=== PATIENT | male | born 1995 | race Caucasian/White ===

== ENCOUNTER 2017-08-13 19:56 | Emergency (ER) | payer MEDICAID, SELFPAY ==
[2017-08-13 19:57] VITALS: BP 153/77; PULSE 63; RESP 19; TEMP 36.7; O2SAT 98; BMI 34.0
--- NOTE | 2017-08-13 20:49 | EKG12_ITS ---
Test Reason : DIZZINESS Blood Pressure : / mmHG Vent. Rate : 065 BPM Atrial Rate : 065 BPM P-R Int : 152 ms QRS Dur : 088 ms QT Int : 392 ms P-R-T Axes : 027 018 034 degrees QTc Int : 407 ms Sinus rhythm with marked sinus arrhythmia Otherwise normal ECG Confirmed by DANIKA GEORGE, FRANKIE ([id number]), newspaper photojournalist WALT BREWER ([id number]) on 08/18/2017 2:22:39 PM Referred By: RYAN Confirmed By:FRANKIE GARNICA MD
[2017-08-13] MEDS: 0.9% Normal Saline 1,000 ML 50 ML IV (21:10)
[2017-08-13 21:36] LABS: Anion Gap 6 (5-15); BUN 12 mg/dL (7-18); BUN/Creat Ratio 9.7 RATIO (10-20); Calcium,Total 8.9 mg/dL (8.5-10.1); Chloride 108 mmol/L (98-107); Creatinine, Serum 1.24 mg/dL (0.70-1.30); EST Glomerular Filtration Rate 79 mL/min (>60); Est Glom Filt Rate - Afr Amer 95 mL/min (>60); Estimated Creatinine Clearance 98.12 ml/min; Glucose 79 mg/dL (74-106); Potassium 3.5 mmol/L (3.5-5.1); Sodium Level 144 mmol/L (136-145)
[2017-08-13 21:36] LABS: Bedside Glucose 107 mg/dL (70-110)
[2017-08-13 21:40] LABS: Absolute Lymphocyte Count 2.25 X10^3/ul (0.83-4.51); Absolute Neutrophil Count 3.1 X10^3/uL (2.0-7.7); Basophil# 0.01 X10^3/uL; Basophil% 0.2 % (0-1); Eosinophils% 1.7 % (0-5); Hematocrit 44.5 % (40-54); Hemoglobin 14.6 g/dl (13.0-16.5); Lymphocyte # 2.25 X10^3/ul (4.0); Lymphocyte % 37.7 % (19-41); Mean Corp Hgb Conc 32.8 g/gl (32-36); Mean Corpuscular Volume 88.3 fL (80-94); Mean Platelet Vol. 10.2 fl (6.2-12.0); Monocyte# 0.55 X10^3/uL; Monocyte% 9.2 % (0-10); Neutrophil # 3.05 X10^3/uL (2.7-7.7); Platelet Count 234 K/mm3 (150-450); RBC Distribution Width CV 13.1 % (11.6-14.6); RBC Distribution Width SD 42.2 fl (35.1-43.9); Red Blood Count 5.04 M/mm3 (4.6-6.2)
[2017-08-13 21:41] LABS: POSITIVE COUNT NO; POSITIVE DIFFERENTIAL NO; POSITIVE MORPHOLOGY NO
[2017-08-13 21:44] LABS: International Normalized Ratio 0.9; Prothrombin Time (Protime)PT. 12.6 SECONDS (11.7-14.9)
[2017-08-13 21:45] LABS: Partial Thromboplast Time 31.4 Seconds (24.1-36.2)
[2017-08-13 22:19] VITALS: BP 145/69; PULSE 79; RESP 16; O2SAT 100
[2017-08-13] MEDS: Ketorolac 30 MG/ML Syringe IV (22:38)
[2017-08-13] MEDS: 0.9% Normal Saline 1,000 ML 999 ML IV (22:38)
[2017-08-13 22:41] VITALS: BP 145/69; BP 148/76; BP 162/76; PULSE 69; PULSE 76; PULSE 94
--- NOTE | 2017-08-13 23:23 | ED.DCSUM_ITS ---
- ER Visit Summary Date of Service: 08/13/17 Chief Complaint: Headache and lightheaded History of Present Illness: The patient is a 21 M who presents with a headache. It began this morning. It gradually worsened throughout the day. He has a history of prior similar headaches. No fall or injury. Today while getting ready to get a shower he began to feel lightheaded and dizzy. He felt as if he may lose consciousness. He did not have a syncopal episode. He denies any chest pain or shortness of breath. He does have a history of prior similar episodes of dizziness as well and has had a normal Holter monitor. Physical Examination: Afebrile vitals are stable Heart regular Lungs clear Abdomen soft Alert and oriented with no focal or lateralizing neurological deficits Test Results: EKG shows sinus arrhythmia at a rate of 65. Orthostatic vital signs negative. CBC BMP INR unremarkable and PTT was normal on arrival. Emergency Department Course and Treatment: She was treated with IV Toradol with complete resolution of his headache. He has no complaints on reevaluation. He was advised to follow-up with his primary care provider and was discharged home. Treatment Plan: [] Disposition: Discharge Impression: Headache Near syncope This note was generated with [employer] dictation software. It may contain incorrect words, spelling, and punctuation that were not noted in review of the chart prior to signing ED Disposition - Plan for ED Patient: Chief Complaint: Dizziness Referrals: Wesley Dorsey DO [Primary Care Provider] -
--- NOTE | 2017-08-13 23:23 | ED.DEP ---
ED Disposition - Plan for ED Patient: Chief Complaint: Dizziness Instructions: ED Near Syncope Unkn, ED Cephalgia Unspecified Referrals: Wesley Dorsey DO [Primary Care Provider] -
[2017-08-13 23:51] VITALS: BP 141/74; PULSE 60; RESP 16; O2SAT 100
== END 2017-08-13 23:56 | disposition home or self-care (01) ==
LOC: ED 22:35
PROVIDERS: Emergency Provider Emergency Medicine; Family Provider Family Medicine; PCP Family Medicine
DX: R51 Headache (principal); R55 Syncope and collapse; Z72.0 Tobacco use
CPT/HCPCS: 80048; 82962; 85025; 85610; 85730; 93005; 96361; 96374; 99285; J7030; A4216

== ENCOUNTER 2019-05-15 06:22 | Emergency (ER) | payer OTHER, SELFPAY ==
[2019-05-15 06:22] VITALS: BP 162/96; PULSE 101; RESP 16; TEMP 36.3; O2SAT 96; BMI 35.4
[2019-05-15] MEDS: dexAMETHasone 4 MG Tablet PO (06:30)
--- NOTE | 2019-05-15 06:43 | ED.VISSUMM ---
- ER Visit Summary Date of Service: 05/15/19 Chief Complaint: Sore throat History of Present Illness: The patient is a 23 M presenting with sore throat. Patient states he has a mild pain in the back of his throat. He is able to swallow. He states it feels funny in the back of his throat. He denies difficulty swallowing. Denies fever. He states he woke up with these symptoms. Denies other complaints. Physical Examination: Vitals are stable. Patient is afebrile. Alert no acute distress. HEENT exam uvula is midline and swollen. No pharyngeal exudate. Neck is supple. No meningismus Lungs are clear and equal bilaterally. Heart is regular rate and rhythm. Extremities are unremarkable. Skin is warm and dry. No rash No focal neurologic deficit. Remainder of exam is unremarkable. Emergency Department Course and Treatment: Patient was given Decadron. Rapid strep negative. On reevaluation, he is resting comfortably. He is able to swallow without difficulty. He is given a prescription for amoxicillin. Advised signs and symptoms for which to return to the ED. Advised to follow up with primary care physician. Disposition: Discharge home Impression: Uvulitis This note was generated with [employer] dictation software. It may contain incorrect words, spelling, and punctuation that were not noted in review of the chart prior to signing ED Disposition - Plan for ED Patient: Instructions: Uvulitis Prescriptions: Amoxicillin 500 mg PO BID #14 tab Transmission Status: Received by [facility] [place] [address] Referrals: Wesley Dorsey DO [Primary Care Provider] -
--- NOTE | 2019-05-15 07:03 | DCINST.ED_ITS ---
ED Disposition - Plan for ED Patient: Instructions: Uvulitis Prescriptions: Amoxicillin 500 mg PO BID #14 tab Transmission Status: Pending to [facility] Referrals: Wesely Dorsey DO [Primary Care Provider] -
--- NOTE | 2019-05-15 07:03 | ED.DEP ---
ED Disposition - Plan for ED Patient: Instructions: Uvulitis Prescriptions: Amoxicillin 500 mg PO BID #14 tab Transmission Status: Pending to [facility] Referrals: Wesley Dorsey DO [Primary Care Provider] -
[2019-05-15] MEDS: AMOXICILLIN 500 MG CAPSULE PO (07:08)
[2019-05-15 07:21] VITALS: RESP 18
== END 2019-05-15 07:23 | disposition home or self-care (01) ==
PROVIDERS: Emergency Provider Emergency Medicine; Family Provider Family Medicine; PCP Family Medicine
DX: K12.2 Cellulitis and abscess of mouth (principal); Z72.0 Tobacco use
CPT/HCPCS: 87880; 99283

== ENCOUNTER 2021-03-05 09:13 | Emergency (ER) | payer BC, SELFPAY ==
[2021-03-05 09:14] VITALS: BP 162/92; PULSE 85; RESP 16; TEMP 36.9; O2SAT 100; BMI 37.5
[2021-03-05 09:21] VITALS: O2SAT 100
--- NOTE | 2021-03-05 09:58 | EKG12_ITS ---
Test Reason : COUGH Blood Pressure : / mmHG Vent. Rate : 093 BPM Atrial Rate : 093 BPM P-R Int : 144 ms QRS Dur : 094 ms QT Int : 352 ms P-R-T Axes : 034 011 030 degrees QTc Int : 437 ms Normal sinus rhythm Normal ECG Confirmed by FREDERIC GEORGE, STEPHANIE ([id number]), make up editor ARMOND SOLITARIO ([id number]) on 03/07/2021 11:22:33 AM Referred By: BENNY Confirmed By:STEPHANIE DE LA GARZA MD
--- NOTE | 2021-03-05 09:58 | EX.ED.VIS.UR ---
HPI HPI - URI History of Present Illness Chief Complaint: Cough Informant: patient Onset/Context/Timing Onset: Days (6) Context: Gradual Onset Timing: Continuous Quality: Aching Location: Chest Narrative Narrative: Patient presents with cough and congestion that has been getting worse over the past 6 days. Patient states she started having pain in his chest with coughing. Patient states it is a dull ache but is sharp whenever he coughs. Patient also admits to some nasal congestion and rhinorrhea. Patient also admits to some sinus pressure. Patient states he is coughing up some green sputum. Patient denies any fevers or chills. Patient states that he has had 3 Covid tests which were all negative. ROS ROS ED Constitutional Constitutional ED: Denies chills or fever(s) Eyes Eyes: Denies blurry vision or change in vision ENT ENT ED: Reports rhinorrhea; Denies sore throat Cardiovascular Cardiovascular: Reports chest pain; Denies palpitations Respiratory/Chest Respiratory/Chest: Reports cough; Denies dyspnea Gastrointestinal Gastrointestinal: Denies nausea or vomiting Genitourinary Genitourinary ED: Denies dysuria or hematuria Musculoskeletal Musculoskeletal: Reports back pain; Denies neck pain Integumentary Denies abscess or rash Neurologic Neurologic: Denies headache(s) or weakness Allergic/Immunologic Allergic/Immunologic ED: Denies mouth swelling or urticaria PFSH PFS Medical History (Updated 03/05/21 @ 11:[address] Zach Ferreira DO) GERD (gastroesophageal reflux disease) Medical History no medical history Home Medications amoxicillin 500 mg PO BID #14 tab 05/15/19 [Rx Last Taken Unknown] Allergy/AdvReac Type Severity Reaction Status Date / Time No Known Allergies Allergy Verified 03/05/21 09:17 Surgical History no surgical history no surgical history Social History Smoking Status: Never smoker EXAM Physical Exam Const Vital Signs: 03/05/21 09:14 03/05/21 09:21 03/05/21 10:21 Temperature 98.4 F Temperature Source Temporal Pulse Rate 85 104 H Respiratory Rate 16 21 H Respiratory Effort Normal Non-Labored Respiratory Depth Normal Respiratory Pattern Normal Blood Pressure 162/92 H Blood Pressure Mean 115 Pulse Ox 100 Oxygen Delivery Method Room Air Room Air Positive well nourished and well developed General Appearance ED: well developed HEENT Reports moist mucous membranes Neck supple and no JVD Resp normal respiratory effort and clear to auscultation bilaterally Auscultation: diminished lung sounds diffuse Cardio regular rate, regular rhythm and no murmurs Rate: regular rate Rhythm: regular rhythm GI normal to inspection, nondistended, normoactive bowel sounds, non-tender and non-distended Palpation: soft Extremity normal to inspection General Extremety ED: Negative for edema or tenderness General Extremity: Negative for edema Neuro oriented x3, CN's II-XII intact bilaterally and no sensory deficits noted Sensorium / Orientation: alert Motor Exam: strength 5/5 throughout Psych mental status grossly normal Skin no rashes or lesions noted MDM MDM MDM Narrative Medical decision making narrative: Patient was given a DuoNeb aerosol here. Portable 1 view chest x-ray was obtained. On my interpretation, lung tamayo are clear. There is normal cardiac silhouette. Bony thorax is normal. There is no acute process noted. Radiologist also interpreted the x-ray and agrees. EKG was obtained. On my interpretation, it showed a normal sinus rhythm with a rate of 93. MA interval, QRS interval, and QTc intervals were all normal. Josephine was normal. There are no acute ST or T wave changes. CBC and comprehensive metabolic profile were obtained and were within normal limits. Patient was advised of his findings. Patient was advised that this is a viral upper respiratory infection. Patient was instructed drink plenty of fluids. Patient was instructed to take Tylenol or ibuprofen as needed for aches or fevers. Patient was instructed to follow-up with his primary care physician in 5 to 7 days. Patient understood and was agreeable with the plan. All questions were answered. Lab Data Attestation: I reviewed the patient's lab results. Labs: Laboratory Results - last 24 hr 03/05/21 03/05/21 10:05 10:05 WBC 8.9 RBC 5.20 Hgb 15.1 Hct 45.3 MCV 87.1 MCH 29.0 MCHC 33.3 RDW Std Deviation 38.5 RDW Coeff of Sandra 12.1 Plt Count 275 MPV 10.0 Immature Gran % (Auto) 0.300 Neut % (Auto) 76.6 H Lymph % (Auto) 13.4 L [place] % (Auto) 8.4 Eos % (Auto) 1.0 Baso % (Auto) 0.3 Absolute Neuts (auto) 6.8 Absolute Lymphs (auto) 1.19 Nucleated RBC % 0 Sodium 140 Potassium 3.8 Chloride 108 H Carbon Dioxide 26.0 Anion Gap 6 BUN 12 Creatinine 1.10 Estim Creat Clear Calc 103.55 Est GFR (MDRD) Af Amer 106 Est GFR (MDRD) Non-Af 87 BUN/Creatinine Ratio 10.9 Glucose 92 Calcium 9.3 Total Bilirubin 0.60 AST 13 L ALT 19 Alkaline Phosphatase 101 Total Protein 7.9 Albumin 3.8 Globulin 4.1 Albumin/Globulin Ratio 0.9 Radiography Diagnostic Testing: Radiology Impression Chest X-Ray 03/05/21 10:10 IMPRESSION: Hyperinflation. The lungs are clear. Electronically Signed: Sandeep Padilla MD at 10:24 EDT , Service support , EKG Initial EKG: Attestation: I personally reviewed and interpreted this EKG as follows: Interpretation: Sinus Rhythm (93) and No Acute Injury Pattern Discharge Plan Triage Chief Complaint: Cough ED Provider: Zach Ferreira Dx/Rx/DC Orders Clinical Impression: Viral upper respiratory tract infection Instructions: ED URI, Viral, No Abx (Adult) Prescriptions: No Action amoxicillin 500 MG tablet 500 mg PO BID Qty: 14 RF: 0 Stand Alone Forms: ED Work / School Excuse Primary Care Provider: Adriel Hunt Referrals: Adriel Hunt DO [Primary Care Provider] - 5-7 Days Disposition Disposition: Home, Self Care
--- NOTE | 2021-03-05 10:10 | RAD_ITS ---
STUDY: X-RAY CHEST REASON FOR EXAM: Male, 25 years old. 3 week history of cough. TECHNIQUE: Single AP portable view of the chest. COMPARISON: None. FINDINGS: EKG electrodes are seen. Hyperinflation. The lungs are clear. There is no demonstrated pleural abnormality. Normal size heart. Normal mediastinum and ashleigh. Normal visualized pulmonary arteries. Normal visualized aortic arch and descending thoracic aorta. Normal visualized thoracic spine. Normal visualized ribs, clavicles, and shoulders. There is no demonstrated abnormality of the visualized soft tissue structures of the upper abdomen. RAD/Chest 1 View (Portable) IMPRESSION: Hyperinflation. The lungs are clear. Electronically Signed: Sandeep Padilla MD at 10:24 EDT , Service support ,
[2021-03-05 10:12] LABS: Absolute Lymphocyte Count 1.19 X10^3/uL (0.83-4.51); Absolute Neutrophil Count 6.8 X10^3/uL (2.0-7.7); Basophil# 0.03 X10^3/uL; Basophil% 0.3 % (0-1); Eosinophil# 0.09 X10^3/uL; Hematocrit 45.3 % (40-54); Hemoglobin 15.1 g/dL (13.0-16.5); Lymphocyte # 1.19 X10^3/ul (0.83-4.51); Lymphocyte % 13.4 % (19-41); Mean Corp Hgb Conc 33.3 g/dL (32-36); Mean Corpuscular Volume 87.1 fL (80-94); Monocyte# 0.75 X10^3/uL; Monocyte% 8.4 % (0-10); NRBC Flagged by Analyzer 0 % (0-5); Neutrophil # 6.79 X10^3/uL (2.7-7.7); Neutrophil % 76.6 % (47-70); Platelet Count 275 K/mm3 (150-450); RBC Distribution Width CV 12.1 % (11.6-14.6); RBC Distribution Width SD 38.5 fl (35.1-43.9); White Blood Count 8.9 K/mm3 (4.4-11.0)
[2021-03-05 10:21] VITALS: PULSE 104; RESP 21
[2021-03-05] MEDS: Ipratropium/Albuterol Sulfate 3 ML AMPUL.NEB INHALATION (10:21)
[2021-03-05 10:28] LABS: ALB/GLOB Ratio 0.9 RATIO (0.9-2.4); AST(SGOT) 13 U/L (15-37); Alanine Aminotransfer ALT/SGPT 19 U/L (16-61); Albumin, Serum 3.8 g/dL (3.2-5.0); Alkaline Phosphatase 101 U/L (45-117); Anion Gap 6 (5-15); BUN 12 mg/dL (7-18); BUN/Creat Ratio 10.9 RATIO (10-20); Calcium,Total 9.3 mg/dL (8.5-10.1); Chloride 108 mmol/L (98-107); EST Glomerular Filtration Rate 87 mL/min (>60); Est Glom Filt Rate - Afr Amer 106 mL/min (>60); Estimated Creatinine Clearance 103.55 ml/min; Globulin 4.1 g/dL (2.2-4.2); Glucose 92 mg/dL (74-106); Potassium 3.8 mmol/L (3.5-5.1); Protein, Total 7.9 g/dL (6.4-8.2); Sodium Level 140 mmol/L (136-145)
[2021-03-05 11:29] VITALS: BP 141/90; PULSE 79; RESP 18; O2SAT 96
== END 2021-03-05 11:30 | disposition home or self-care (01) ==
PROVIDERS: Emergency Provider Emergency Medicine; PCP Family Medicine
DX: J06.9 Acute upper respiratory infection, unspecified (principal); K21.9 Gastro-esophageal reflux disease without esophagitis
CPT/HCPCS: 71045; 80053; 85025; 93005; 94640; 99283; A4216

== ENCOUNTER → 2022-07-23 | Outpatient (CLI) | payer BC, SELFPAY ==
[2022-07-23 16:54] LABS: Absolute Lymphocyte Count 1.79 X10^3/uL (0.83-4.51); Absolute Neutrophil Count 5.7 X10^3/uL (2.0-7.7); Basophil# 0.03 X10^3/uL; Basophil% 0.4 % (0-1); Eosinophil# 0.04 X10^3/uL; Eosinophils% 0.5 % (0-5); Hematocrit 46.2 % (40-54); Hemoglobin 15.5 g/dL (13.0-16.5); Lymphocyte # 1.79 X10^3/ul (0.83-4.51); Lymphocyte % 22.1 % (19-41); Mean Corp Hgb Conc 33.5 g/dL (32-36); Mean Corpuscular Hgb 28.7 pg (27.0-32.0); Mean Corpuscular Volume 85.4 fL (80-94); Mean Platelet Vol. 10.4 fl (6.2-12.0); Monocyte# 0.52 X10^3/uL; Monocyte% 6.4 % (0-10); NRBC Flagged by Analyzer 0 % (0-5); Neutrophil % 70.4 % (47-70); Platelet Count 286 K/mm3 (150-450); RBC Distribution Width CV 13.2 % (11.6-14.6); RBC Distribution Width SD 40.4 fl (35.1-43.9); Red Blood Count 5.41 M/mm3 (4.6-6.2); White Blood Count 8.1 K/mm3 (4.4-11.0)
[2022-07-23 17:56] LABS: ALB/GLOB Ratio 1.3 RATIO (0.9-2.4); AST(SGOT) 18 U/L (15-37); Alanine Aminotransfer ALT/SGPT 24 U/L (16-61); Albumin, Serum 4.5 g/dL (3.2-5.0); Alkaline Phosphatase 96 U/L (45-117); Anion Gap 6 (5-15); BUN 14 mg/dL (7-18); BUN/Creat Ratio 10.2 RATIO (10-20); CRP < 2.90 mg/L (0.0-3.0); Calcium,Total 9.6 mg/dL (8.5-10.1); Chloride 107 mmol/L (98-107); Creatinine, Serum 1.37 mg/dL (0.70-1.30); EST Glomerular Filtration Rate 67 mL/min (>60); Est Glom Filt Rate - Afr Amer 81 mL/min (>60); Globulin 3.4 g/dL (2.2-4.2); Glucose 88 mg/dL (74-106); Lipase 365 U/L (73-393); Potassium 3.6 mmol/L (3.5-5.1); Protein, Total 7.9 g/dL (6.4-8.2); Sodium Level 141 mmol/L (136-145)
[2022-07-23 19:33] LABS: Erythrocyte Sedimentation Rate 4 mm/hr (0-20)
[2022-07-25 15:08] LABS: Anti-Centromere B Ab <0.2 AI (0.0-0.9); Anti-Chromatin <0.2 AI (0.0-0.9); Anti-Jo <0.2 AI (0.0-0.9); Anti-Scleroderma-70 AB <0.2 AI (0.0-0.9); RNP Ab <0.2 AI (0.0-0.9); SJOGREN'S Anti-SS-A test < 0.2 AI (0.0-0.9); SJOGREN'S Anti-SS-B test < 0.2 AI (0.0-0.9); Smith Ab <0.2 AI (0.0-0.9)
[2022-07-26 16:09] LABS: Cytoplasmic Ab (C-ANCA) <1:20 titer (Neg:<1:20); Endomysial Antibody IgA Negative (Negative); Immunoglobulin A 62 mg/dL (90-386)
[2022-07-26 17:27] LABS: Anti-Mitochondrial AB <20.0 Units (0.0-20.0); Anti-dsDNA Ab 5 IU/mL (0-9)
[2022-07-26 19:19] LABS: Anti-Smooth Muscle ABS 10 Units (0-19); Gastrin, Serum 61 pg/mL (0-115); Perinuclear Ab (P-ANCA) <1:20 titer (Neg:<1:20); t-Transglutaminase IgA <2 U/mL (0-3)
== END | disposition home or self-care (01) ==
LOC: LAB 16:00
PROVIDERS: PCP Family Medicine; Visit Provider Nurse Practitioner Adult Health
DX: R10.10 Upper abdominal pain, unspecified (principal); K21.9 Gastro-esophageal reflux disease without esophagitis
CPT/HCPCS: 36415; 80053; 82784; 82941; 83516; 83690; 85025; 85652; 86140; 86225; 86235; 86255; 86256

== ENCOUNTER → 2023-01-10 | Outpatient (CLI) | payer BC, SELFPAY ==
--- NOTE | 2023-01-10 09:36 | NM_ITS ---
CLINICAL: 27-year-old female with history of postprandial abdominal pain. RADIONUCLIDE HEPATOBILIARY SCINTIGRAPHY COMPARISON: None available FINDINGS: Following the intravenous administration of 5.5 mCi of 99m Tc Mebrofenin, hepatobiliary images reveal: 1. Relatively prompt and homogeneous radiopharmaceutical concentration is noted by a normal sized liver. No parenchymal defects are identified. 2. Gallbladder activity is identified at 10 minutes post radiopharmaceutical administration. 3. Small intestinal tract is not visualized during 60 minutes of pre-CCK sequential imaging. Small bowel activity is identified following the administration of cholecystokinin. 4. Washout of the radiopharmaceutical by the hepatic parenchyma appears qualitatively normal. Cholecystokinin (0.02 ug/kg) was administered intravenously over a 30-minute period. The post CCK gallbladder ejection fraction calculated at 20 minutes following Cholecystokinin administration was noted to be 50.0 % (normal greater than 35%). During 30 minutes of post CCK imaging, there is no scintigraphic evidence of reflux of the radiotracer into the common hepatic duct or refilling of the gallbladder. NM/Hepatobilliary Img w/Pharm Int IMPRESSION: 1. NORMAL 99m Tc Mebrofenin hepatobiliary imaging examination with Cholecystokinin. A. A gallbladder ejection fraction calculated to be greater than 35% following the administration of Cholecystokinin makes the probability of functional hepatobiliary disease (gallbladder and/or sphincter of Oddi dyskinesia) and/or organic hepatobiliary disease (chronic acalculous cholecystitis and/or cystic duct syndrome) to be low. (Eric Rodas et al, Journal of Nuclear Medicine 32:1695, 1991). Electronically Signed: Yon Sharpe, at 10:21 EDT ,
== END | disposition home or self-care (01) ==
PROVIDERS: PCP Family Medicine
DX: R10.10 Upper abdominal pain, unspecified (principal); R19.7 Diarrhea, unspecified
CPT/HCPCS: 78227; A9537; J2805

== ENCOUNTER 2024-05-18 07:36 | Emergency (ER) | payer OTHER, SELFPAY ==
[2024-05-18 07:36] VITALS: BP 148/103; PULSE 82; RESP 14; TEMP 36.2; O2SAT 100; BMI 33.2
--- NOTE | 2024-05-18 07:42 | EX.ED.GENINJ ---
HPI History of Present Illness Chief Complaint: Laceration Narrative Narrative: Patient is a 28-year-old male with past medical history of GERD, DARSHANA who presented to the emergency department the chief complaint of cut to his left thumb. He states that he was cutting sourdough bread this morning when the knife went through the bread and cut his left thumb. He states that his last tetanus shot was approximately 10 years ago and states that this will need updated today. Patient otherwise has no further complaints at this point time. [facility] Medical History Elevated lipase LUQ abdominal tenderness Abdominal pain DARSHANA (obstructive sleep apnea) Allergic rhinitis GERD (gastroesophageal reflux disease) Home Medications ?Medication ?Instructions ?Recorded ?Last Taken ?Type buspirone 10 mg tablet 10 mg PO DAILY 05/13/22 Unknown History omeprazole 40 mg capsule,delayed 40 mg PO DAILY 05/13/22 Unknown History release amoxicillin 500 mg tablet 500 mg PO BID #20 tabs 08/17/23 Unknown Rx Allergy/AdvReac Type Severity Reaction Status Date / Time No Known Allergies Allergy Verified 05/18/24 07:37 Family History Mother Diabetes Father Diabetes Arrhythmia Alcohol abuse Other Heart disease Social History Smoking Status: Former smoker quit date: 08/21/20 Smokeless tobacco user: chewing tobacco alcohol intake: former year quit: 2020 ROS ROS ED ROS Narrative Constitutional: Denies fevers, chills, headaches, lightness, dizziness Neurological: Denies numbness, weakness, tingling Skin: Complains of thumb laceration as noted above EXAM Physical Exam Narrative Exam Narrative: General: Patient lying in bed rest comfortably did not appear to be acute distress Head: Atraumatic, normocephalic Eyes: PERRL bilaterally, EOMI bilaterally, no conjunctival injection noted Neck: Soft, supple, trachea midline Cardiovascular: Regular rate and rhythm Extremities: +5/5 strength noted in the bilateral upper and lower extremities, radial pulses +2/4 in the bilateral upper extremities. Patient is able to fully flex and extend all fingers bilaterally Neurological: Patient following commands knew that he was at [facility] years 2023. Sensation grossly intact in median, ulnar and radial nerve distributions bilaterally Skin: Patient has a 1-1/2 to 2 cm laceration noted to his thumb distally no active bleeding noted Const Vital Signs: 05/18/24 07:36 Temperature 97.1 F L Temperature Source Temporal Pulse Rate 82 Respiratory Rate 14 Blood Pressure 148/103 H Blood Pressure Mean 118 Pulse Ox 100 Oxygen Delivery Method Room Air MDM MDM MDM Narrative Medical decision making narrative: Patient is a 28-year-old male who presents to the emergency department chief complaint of laceration to left thumb after cutting this with a bread knife. Patient will have x-ray performed on the differential diagnose includes Melamin to fracture, laceration, retained foreign body. Once post is obtained reviewed the laceration will be repaired. Patient's tetanus shot will be updated today. Patient's x-ray reviewed by myself and by radiology which showed no acute fracture dislocation or retained foreign body. Patient had a laceration repaired and was encouraged to have his sutures removed in approximately 7 to 10 days. He is advised to keep the area dry and clean and do not soak the thumb. He was advised to watch out for signs infection such as surrounding redness, purulent discharge. Patient would like to go home at this point time all question concerns answered he is discharged home in stable condition. Procedure note Procedure name: Laceration repair Indication: Reduce risk of infection Location: Left distal thumb 1 and half centimeter simple laceration Preprocedure diagnosis: Laceration Postprocedure diagnosis: Repaired laceration Informed consent was obtained prior to procedure started. Procedure: The appropriate timeout was taken. The area was prepped and draped in usual sterile fashion. Local anesthesia was achieved using 2 cc of lidocaine 1% without epinephrine. Wound was copiously irrigated. 3 4-0 Ethilon interrupted sutures were placed. Estimated blood loss was less than 0.5 mL. Dressing was applied to the area and anticipatory guidance, as well as standard postprocedure care was explained. Return precautions are given. Patient tolerated procedure well without any complications. Follow-up visit for suture removal and evaluation of laceration. Radiography Diagnostic Testing: Clinical Impression(s) from Imaging Studies Finger X-Ray 05/18/24 07:53 IMPRESSION: Unremarkable x-ray examination of the thumb. Electronically Signed: Noe Ramon MD at 8:20 EST , Discharge Plan Triage Chief Complaint: Laceration ED Provider: Mando Vann Dx/Rx/DC Orders Clinical Impression: Finger laceration Prescriptions: No Action buspirone 10 mg tablet 10 mg PO DAILY omeprazole 40 mg capsule,delayed release(DR/EC) 40 mg PO DAILY amoxicillin 500 mg tablet 500 mg PO BID Qty: 20 0RF Primary Care Provider: Adriel Hunt Referrals: Adriel Hunt DO [Primary Care Provider] - Activity Restrictions/Additional Instructions: Have your sutures removed in approximately 7 to 10 days. Watch out for signs of infection such as surrounding redness, purulent discharge from the wound. Keep the area dry and clean do not soak the stitches. Return with worsening symptoms or any other concerns Print Language: Icelandic Disposition Disposition: Home, Self Care
[2024-05-18] MEDS: Diphth,Pertuss(Acell),Tet Vac 0.5 ML Vial IM (07:48)
[2024-05-18] MEDS: Lidocaine 1% (20 ml mdv) 20 ML Vial 10 ML INFILT (07:49)
--- NOTE | 2024-05-18 07:53 | RAD_ITS ---
STUDY: X-RAY - LEFT HAND, ATTENTION THUMB FINGER REASON FOR EXAM: Male, 28 years old. Laceration to thumb. TECHNIQUE: 3 views of the left thumb were obtained. COMPARISON: None. FINDINGS: Normal metacarpal head. Normal metacarpophalangeal joint. Normal proximal phalanx. Normal distal phalanx. Normal interphalangeal joint of the thumb. There is no demonstrated fracture. RAD/Finger(s) Min 2 Views IMPRESSION: Unremarkable x-ray examination of the thumb. Electronically Signed: Noe Ramon MD at 8:20 EST ,
[2024-05-18 08:43] VITALS: BP 124/69; PULSE 72; RESP 15; TEMP 36.3; O2SAT 99
== END 2024-05-18 08:46 | disposition home or self-care (01) ==
PROVIDERS: Emergency Provider Emergency Medicine; PCP Family Medicine; Visit Provider Emergency Medicine
DX: S61.012A Laceration without foreign body of left thumb without damage to nail, initial encounter (principal); K21.9 Gastro-esophageal reflux disease without esophagitis; W26.0XXA Contact with knife, initial encounter; Y93.89 Activity, other specified; Z23 Encounter for immunization; G47.33 Obstructive sleep apnea (adult) (pediatric); Z87.891 Personal history of nicotine dependence
CPT/HCPCS: 12001; 73140; 90471; 90715; 99282